=== PATIENT | male | born 1960 | race Caucasian/White ===

== ENCOUNTER → 2025-01-06 09:32 | Outpatient (REF) | payer MEDICARE, SELFPAY | LOC: HWRAD 09:32 | PROVIDERS: ATTENDING PHYSICIAN Nurse Practitioner Family | DX: E78.2 Mixed hyperlipidemia (principal) | CPT/HCPCS: 75571 ==

== ENCOUNTER → 2025-01-18 14:59 | Outpatient (REF) | payer MEDICARE, SELFPAY | LOC: RAD 14:59 | PROVIDERS: ATTENDING PHYSICIAN Nurse Practitioner Family | DX: M79.89 Other specified soft tissue disorders (principal); R60.0 Localized edema | CPT/HCPCS: 93970 ==

== ENCOUNTER 2025-08-07 10:41 | Emergency (ER) | payer MEDICARE, SELFPAY ==
[2025-08-07 10:43] VITALS: BP 122/91
[2025-08-07 11:48] VITALS: BP 116/72
[2025-08-07 12:00] VITALS: BP 122/66
[2025-08-07] MEDS: NSS 1000 IV (12:02)
[2025-08-07] MEDS: TORADOL 15 MG IV (12:02)
[2025-08-07 12:03] LABS: Hematocrit 45.3 % (39.0-52.0); Hemoglobin 15.3 g/dL (13.0-18.0); Mean Corp Hgb Conc. 33.8 g/dL (33.0-37.0); Mean Corpuscular Volume 89.0 fL (80.0-94.0); Nucleated Red Blood Cells % 0 % (-); Platelet Count 155 10^3/uL (130-400); Red Cell Dist. Width 12.4 % (11.5-14.5)
[2025-08-07 12:15] LABS: ALT (SGPT) 26 U/L (0-50); AST (SGOT) 29 U/L (17-59); Albumin 4.1 g/dl (3.5-5.0); Alkaline Phosphatase 75 U/L (38-126); Blood Urea Nitrogen 18 mg/dl (9-20); Calcium 9.5 mg/dl (8.4-10.2); Carbon Dioxide 28 mmol/L (22-30); Chloride 107 mmol/L (98-107); Glucose 106 mg/dl (70-99); Potassium 4.3 mmol/L (3.5-5.1); Sodium 137 mmol/L (135-145); Total Protein 6.7 g/dl (6.3-8.2); eGFR > 60.00
[2025-08-07 12:25] LABS: Urine Character Clear (Clear)
[2025-08-07 12:34] LABS: Urine Red Blood Cell 0-2 /HPF (0-2); Urine Squamous Cell 0-2 /LPF (Few); Urine White Cell 0-2 /HPF (0-5)
[2025-08-07 13:00] VITALS: BP 107/64
--- NOTE | 2025-08-07 15:00 | ED.GENMED ---
History of Present Illness
General
Chief Complaint: Flank Pain
Time Seen by Provider: 08/07/25 11:16
History of Present Illness
History of Present Illness:
65-year-old male presents the emergency department for evaluation of a persistent left lower quadrant and left flank pain beginning today. No nausea or vomiting. Denies any diarrhea. States it feels comparable to a past kidney stone.
Past History
Past History
ED Past Medical History: GERD (w/ gastric ulcers) and Hypercholesterolemia
Social History
Tobacco: Non-smoker
Living: with family
Employment: Employed
Review of Systems
Review of Systems
Allergies reviewed?: Yes
All Other Systems: ROS reviewed and negative except as documented in HPI and ROS
Phy Exam
Physical Exam
Physical Exam:
GEN: Well appearing, NAD, WDWN
HEENT: Oral mucosa moist, no scleral icterus
Cardiac: Regular rate
Lung: No respiratory distress, no tachypnea
Abdomen: Soft, grossly nontender
MSK: No gross deformity or injuries
Skin: Good color, no pallor or jaundice, no rashes
Neuro: AO x3, moves all extremities freely
Psych: Calm, cooperative
Course
Orders/Labs/Results
Orders:
Orders
08/07/25 11:48
CBC/With Diff [Complete Blood Count/With Diff] Urgent
CMP [Comprehensive Metabolic Panel] Urgent
Urinalysis Reflex To Culture Urgent
Date Specimen was Collected: 08/07/25
Time Specimen was Collected: 11:45
Urine Microscopic Reflex Cult Urgent
08/07/25 11:54
0.9% Sodium Chloride 1000 ml [Nss] 1,000 ml IV BOLUS
Ketorolac [Toradol] 15 mg IV NOW STA
08/07/25 11:55
CT Abd/pel Without Iv Or Oral Urgent
Comment:
Reason For Exam: L flank pain
Abnormal Lab Results
08/07/25
11:48
WBC 11.3 H 10^3/uL
(4.8-10.8)
Abs Immat Gran (auto) 0.1 H 10^3/uL
(0-0.05)
Absolute Neuts (auto) 8.6 H 10^3/uL
(1.4-6.5)
Absolute Monos (auto) 0.9 H 10^3/uL
(0.1-0.6)
Neutrophils % 75.8 H %
(42.2-75.2)
Lymphocytes % 13.6 L %
(20.5-51.1)
Glucose 106 H mg/dl
(70-99)
Urine Ketones 1+ A
(Negative)
Urine Bacteria (Reflex) Few A
(Negative)
Urine Albumin (Reflex) 1+ A
(Neg - Trace)
08/07/25 11:48
08/07/25 11:48
Vital Signs
Initial and Last Documented VS:
Initial Vital Signs
Temp Pulse Resp BP Pulse Ox
97.7 F 57 16 122/91 96
08/07/25 10:43 08/07/25 10:43 08/07/25 10:43 08/07/25 10:43 08/07/25 10:43
Last Documented Vital Signs
Temp Pulse Resp BP Pulse Ox
97.7 F 78 23 107/64 96
08/07/25 10:43 08/07/25 15:00 08/07/25 15:00 08/07/25 13:00 08/07/25 15:01
MDM/Problems Addressed
MDM/Problems Addressed:
Imaging reveals a 6 mm ureteral stone. The patient received 1 dose of Toradol and was quite comfortable. No evidence of UTI, minimal leukocytosis is likely a pain response. Will treat supportively with NSAIDs and Flomax, he has an outpatient
urologist he plans to follow-up with. He is anticoagulated however given the benefit of NSAIDs I feel as though a limited course of Toradol will be beneficial to this patient. ED return parameters discussed
*Pulse Oximetry
SaO2: 96
Oxygen Mode of Delivery: Room air
Patient hypoxic: no
*Critical Care Note
Total Time (30-74mins, 75-104mins- exclusive of procedures): Not Applicable
ED Attending Note
-
Portions of this chart may have been created with voice recognition software.� Occasional wrong word or��sound alike� substitutions may have occurred due to the inherent limitations of voice recognition software.
Discharge Plan
Departure
Patient Disposition: Home (Routine Discharge)
Date of Disposition: 08/07/25
Time of Disposition: 15:01
Patient with high blood pressure during this ER visit?: No
Discharge Problem:
Ureterolithiasis
Instructions: Kidney Stones (DC)
Prescriptions:
New
ketorolac 10 mg tablet
10 mg PO Q8H Qty: 10 0RF
Rx Instructions:
maximum total duration of 5 days from all oral, intranasal, or parenteral formulations
tamsulosin [Flomax] 0.4 mg capsule
0.4 mg PO HS Qty: 10 0RF
oxycodone-acetaminophen [Percocet] 5-325 mg tablet
1 tab PO Q6HPRN PRN (Reason: pain) Qty: 10 0RF
No Action
simvastatin 40 MG tablet
40 mg PO HS
esomeprazole magnesium [Nexium] 40 MG capsule,delayed release(DR/EC)
40 mg PO HS
multivitamin with folic acid [Tab-A-Tatum] 1 TABLET tablet
1 tab PO HS
acetaminophen 325 MG tablet
650 mg PO Q4HPRN PRN (Reason: mild pain, temp > 100.3) 0RF
apixaban [Eliquis DVT-PE Treat 30D Start] 5 MG tablets,dose pack
5 - 10 mg PO DIRECTED Qty: 1 0RF
Rx Instructions:
Take Eliquis 10mg orally twice a day for 13 additional doses then switch to 5mg orally twice a day
Referrals:
John Bhatia MD [Family Provider, Internal Medicine]
Interventions
Interventions:
*Risk Screen - Suicide Last Done: 08/07/25 10:43
*General Assessment Last Done: 08/07/25 12:11
*Neglect/Abuse Screening Last Done: 08/07/25 10:43
*ED- Fall Risk Assessment Last Done: 08/07/25 12:11
*ED COVID-19 Vaccine History Last Done: 08/07/25 12:11
*ED Influenza Vaccine History Last Done: 08/07/25 12:11
*Nursing Disposition Last Done: 08/07/25 15:27
BQ-Himkxu-Kmatelddmc Assessment Last Done: 08/07/25 12:11
ED-Male Genitourinary Assessment Last Done: 08/07/25 12:11
Discharge Date and Time
Discharge Date/Time: 08/07/25 15:29
Print Language: [id number]
== END 2025-08-07 15:29 | disposition home or self-care (01) ==
LOC: EMR 10:41
PROVIDERS: Physician Assistant; EMERGENCY PHYSICIAN Emergency Medicine; FAMILY PHYSICIAN Internal Medicine Geriatric Medicine
DX: N13.2 Hydronephrosis with renal and ureteral calculous obstruction (principal); E78.00 Pure hypercholesterolemia, unspecified; K21.9 Gastro-esophageal reflux disease without esophagitis; Z87.442 Personal history of urinary calculi
CPT/HCPCS: 99284; 96374; 96361; 74176; 80053; 81003; 81015; 85025